=== PATIENT | female | born 1955 | race Caucasian/White ===

== ENCOUNTER 2020-01-17 07:39 | Outpatient (CLI) | payer BC ==
[2020-01-17 19:16] LABS: Bilirubin Neg (Negative); Blood, Urine Negative (Negative); Clarity Clear (Clear); Glucose, Urine (Dipstick) Normal (Negative); Ketone, Urine Negative (Negative); Leukocyte 25 (Negative); Nitrite Negative (Negative); Protein, Urine (Dipstick) Negative (Neg-Trace); Specific Gravity, Urine 1.025 (1.002-1.036); Urobilinogen Normal mg/dL (Less than 2)
[2020-01-17 19:29] LABS: #Basophils 0.1 10x3/uL (0.0-0.2); #Eosinphils 0.2 10x3/uL (0.0-0.5); #Monocytes 0.7 10x3/uL (0.0-1.1); #Neutrophils 4.2 10x3/uL (1.5-8.4); %Basophils 0.7 % (0.0-2.0); %Eosinophils 2.3 % (0.0-6.0); %Lymphocytes 39.8 % (18.0-47.0); %Neutrophils 48.8 % (40.0-75.0); Hemoglobin 16.7 g/dL (12.0-16.0); Mean Corpuscular HGB CONC 33.6 G/DL (32.0-36.0); Mean Corpuscular Hemoglobin 32.3 PG (27.0-33.0); Mean Corpuscular Volume 96.1 fl (80.0-100.0); Mean Platelet Volume 11.9 fl (7.4-10.4); Platelet Count 241 10x3/uL (130-400); RBC Distribution Width 13.2 % (11.5-14.5); Red Blood Cell (RBC) Count 5.17 10x6/uL (3.90-5.20); White Blood Cell (WBC) Count 8.5 10x3/uL (4.5-11.0)
[2020-01-17 19:36] LABS: Prothrombin Time 10.3 sec (9.5-12.1)
[2020-01-17 19:39] LABS: Bacteria/HPF 3+ HPF (None Seen); Mucous/LPF 3+ LPF (<2+); RBC/HPF 0-3 HPF (0-3)
[2020-01-17 19:41] LABS: Anion Gap 17 mmol/L (10-20); BUN (Urea Nitrogen) 28 mg/dL (9.8-20.1); Calc. Creatinine Clearance 0 mL/min (70-130); Calcium 9.9 mg/dL (7.8-10.44); Carbon Dioxide 23 mmol/L (23-31); Chloride 103 mmol/L (98-107); Glucose 79 mg/dL (80-115); Potassium 4.8 mmol/L (3.5-5.1); Sodium 138 mmol/L (136-145)
[2020-01-18 03:28] LABS: SARS-CoV-2 MS2 Positive; SARS-CoV-2 N Gene Negative; SARS-CoV-2 S Gene Negative; SARS-CoV-2 by NAA Not Detected (NotDetected); SARS-CoV-2 orf1ab Negative
--- NOTE | 2020-01-20 16:20 | EKG ---
Test Reason : Blood Pressure : / mmHG Vent. Rate : 071 BPM Atrial Rate : 071 BPM P-R Int : 134 ms QRS Dur : 076 ms QT Int : 360 ms P-R-T Axes : 079 067 058 degrees QTc Int : 391 ms Normal sinus rhythm Normal ECG No previous ECGs available Confirmed by DR. Batool MALIK ([id number]) on 01/20/2020 4:20:04 PM Referred By: Jamal LORENZ, Confirmed By:DR. Batool MALIK
== END 2020-01-17 07:40 | disposition home or self-care (01) ==
LOC: LABBT 07:39
PROVIDERS: ATTEND Orthopaedic Surgery
DX: Z01.818 Encounter for other preprocedural examination (principal); Z20.828 Contact with and (suspected) exposure to other viral communicable diseases; M16.11 Unilateral primary osteoarthritis, right hip
CPT/HCPCS: 80048; 81001; 85025; 85610; 87081; 87635; 93005; 93010; U0003

== ENCOUNTER 2020-01-17 17:00 | Inpatient (IN) | payer BC ==
[2020-01-20 12:35] VITALS: BMI 43.4
[2020-01-21] MEDS ORDERED: Sodium Chloride 0.9% 100 ML ONE (08:58)
[2020-01-21] MEDS ORDERED: Vancomycin 1.5 GRAM/300 ML BAG ONE (08:58)
[2020-01-21] MEDS ORDERED: Tranexamic Acid 1,000 MG/10 ML VIAL ONE (08:58)
[2020-01-21] MEDS ORDERED: Midazolam HCl 2 mg/2 ml Vial ONE (10:10)
[2020-01-21] MEDS ORDERED: Fentanyl 100 MCG/2 ML VIAL ONE ×6 (10:11→16:42)
[2020-01-21] MEDS ORDERED: Ondansetron PF 4 MG/2 ML Vial IVP PRN ×2 (10:56→11:00)
[2020-01-21] MEDS ORDERED: HYDROcodone/Acetaminophen 10/325 mg Tablet PO PRN ×2 (10:56)
[2020-01-21] MEDS ORDERED: diphenhydrAMINE 25 MG CAP PO PRN ×2 (10:56→11:00)
[2020-01-21] MEDS ORDERED: Zolpidem Tartrate 5 MG TAB PO PRN ×2 (10:56→11:00)
[2020-01-21] MEDS ORDERED: Acetaminophen 325 MG TAB PO PRN (10:56)
[2020-01-21] MEDS ORDERED: Promethazine HCl 25 MG/ML VIAL IM PRN ×2 (10:56→11:00)
[2020-01-21] MEDS ORDERED: Naloxone HCl 0.4 mg/ml Vial IV PRN (11:00)
[2020-01-21] MEDS ORDERED: diphenhydrAMINE 50 MG/ML VIAL IVP PRN (11:00)
[2020-01-21] MEDS ORDERED: diphenhydrAMINE 50 MG/ML VIAL IM PRN (11:00)
[2020-01-21] MEDS ORDERED: Naloxone HCl 0.4 mg/ml Vial IVP PRN (11:00)
[2020-01-21] MEDS ORDERED: HYDROcodone/Acetaminophen 5/325 mg Tablet PO PRN ×2 (11:00)
[2020-01-21] MEDS ORDERED: traMADol HCl 50 MG TAB PO PRN (11:00)
[2020-01-21] MEDS ORDERED: Promethazine HCl 25 MG SUPP PR PRN (11:00)
[2020-01-21] MEDS ORDERED: Hydrocerin (Eucerin) Cream 120 gm Jar TOP PRN (11:00)
[2020-01-21] MEDS ORDERED: Bupivacaine 0.25% 10 ML VIAL EPIDURAL PRN (11:00)
[2020-01-21] MEDS ORDERED: Glycopyrrolate 0.2 MG/ML 5 ML SYRINGE ONE (11:10)
[2020-01-21] MEDS ORDERED: PROPOFOL 200 MG/20 ML VIAL ONE (11:10)
[2020-01-21] MEDS ORDERED: Ondansetron PF 4 MG/2 ML Vial ONE (11:10)
[2020-01-21] MEDS ORDERED: Ketorolac Tromethamine 30 MG/ML VIAL ONE (11:10)
[2020-01-21] MEDS ORDERED: ePHEDrine 50 MG/ML VIAL ONE (11:10)
[2020-01-21] MEDS ORDERED: Dexamethasone 20 MG/5 ML VIAL ONE (11:10)
[2020-01-21] MEDS ORDERED: Labetalol HCl 100 MG/20 ML VIAL ONE (11:10)
[2020-01-21] MEDS ORDERED: Lidocaine 1.5% w/Epi 1:200K 30 ML VIAL (Epid Use) ONE (11:10)
[2020-01-21] MEDS ORDERED: Rocuronium Bromide 10 MG/ML (10ML VIAL) ONE (11:10)
[2020-01-21] MEDS ORDERED: Ropivacaine 0.2% HCl/PF 20 ML ONE (11:15)
[2020-01-21] MEDS ORDERED: HYDROmorphone 2 MG/ML VIAL ONE (13:08)
[2020-01-21] MEDS ORDERED: HYDROmorphone 2 MG/ML VIAL SLOW IVP PRN (13:45)
--- NOTE | 2020-01-21 14:27 | OP ---
DATE OF PROCEDURE: 01/21/2020 TITLE OF PROCEDURE: Right total hip arthroplasty using a Demario Accolade II size 3 stem with a 36-mm -5 head, and a Trident II cup size 48 with a standard 36 liner X3 polyethylene. SALES LEAD: Warner Kincaid PA-C BLOOD LOSS: 250. SPECIMEN: None. DRAINS: None. COMPLICATIONS: None. The assistant teaching professor/co-surgeon was present through the entire procedure and was responsible for providing exposure, tissue retraction and any necessary limb or tissue manipulation required to obtain necessary reduction or hardware placement. The assistant teaching professor/co-surgeon also provided bleeding control, tissue closure, and suturing in conjunction with the primary surgeon. PROCEDURE IN DETAIL: After informed consent was obtained in the preoperative holding area, the patient was taken to the operative suite where general anesthesia was induced. The patient was then positioned in the lateral decubitus position. The hip was then prepped and draped in usual sterile fashion. The patient received preoperative antibiotics. Prior to incision, time-out was called and all members of the surgical team agreed upon site, surgeon, and patient. After this, a longitudinal incision was made directly over the trochanter, noted by palpation extending 2 fingerbreadths above and below the trochanter. The deeper subcutaneous layer was undermined with Bovie electrocautery. The iliotibial band was encountered and incised sharply and the plane below this was developed bluntly. A Charnley retractor was placed to hold this opened. The lateral aspect of the trochanter and the abductor muscles were encountered and then reflected anteriorly off the trochanter using Bovie electrocautery. Once this was completed, the anterior capsule was then encountered and identified and copious capsulotomy was carried out, exposing the femoral neck and head. Dislocation maneuver was then performed and an in situ provisional neck cut was then made using the oscillating saw. Attention was then turned to acetabular preparation and sequential reaming was carried out up to the appropriate diameter. A trial was then malleted into place with good firm resistance and no pullout. The permanent acetabular shell was then malleted squarely into place, as was the appropriate liner. Once completed, the wound was copiously irrigated and attention was then turned to femoral preparation. Flexion and external rotation were performed of the exposed thigh and femoral elevators were then placed at the proximal aspect of the wound. Canal finder was used to establish the length of the canal and sequential reaming was carried out, followed by broaching. Once the appropriate stability was established with the trial broaches with flexion, extension and rotational stability, we did trial with neutral and 2 mm offset incremental necks. Once the appropriate size was decided upon, with good stability noted with flexion, extension, internal and external rotation and shuck being negative, we removed the femoral trial broach and malleted into place the permanent prosthesis with good firm fit, which was also stable to rotation. Again, the hip felt very stable to flexion, extension, internal and external rotation. Leg lengths appeared near anatomic clinically and we were quite happy with prosthesis placement. Copious irrigation was then carried out through the entirety of the wound. Primary closure of the abductors was accomplished with interrupted #2 Vicryl [id number] stitches and the IT band was then closed with interrupted #2 Vicryl, oversewn with a #2 running barbed Quill stitch. Subcutaneous fascia was closed with running barbed Quill stitch and a subcuticular Monocryl barbed Quill stitch was used for skin closure and augmented with skin cement. A sterile dressing was applied. The procedure was terminated without any complication. All counts were correct. The patient was awakened in the operative suite and taken to the recovery room in stable condition. Job ID: [id number]
--- NOTE | 2020-01-21 14:44 | RAD ---
Right hip 3 views: 01/21/2020 COMPARISON: None HISTORY: Evaluate right hip following arthroplasty FINDINGS: There is a total hip arthroplasty on the right. There is postoperative gas laterally and an teriorly, evidence of recent hip arthroplasty. No evidence for hardware failure. No displaced fracture or dislocation. IMPRESSION: Radiographic evidence of recent right hip arthroplasty.
[2020-01-21] MEDS ORDERED: HYDROmorphone 0.5 MG/0.5 ML SYRINGE ONE (16:41)
[2020-01-21] MEDS ORDERED: CEFAZOLIN 2 GM in Premix Bag 1 BAG IVPB SCH (17:00)
[2020-01-21] MEDS: Ketorolac Tromethamine 30 MG/ML VIAL IVP SCH (19:57)
[2020-01-21] MEDS: Mometasone 200 MCG/Formoterol 5 MCG 120 PUFF INHALER INH SCH (20:26)
[2020-01-21] MEDS: Ferrous Gluconate 324 MG TAB PO SCH (20:38)
[2020-01-21] MEDS: Aspirin 81 mg Enteric Coated Tablet PO SCH (20:44)
[2020-01-21] MEDS: Acetaminophen 500 MG TAB PO SCH (20:44)
[2020-01-21] MEDS: traMADol HCl 50 MG TAB PO PRN (20:56)
[2020-01-21] MEDS: Senokot S 8.6-50 MG TAB PO SCH (21:13)
[2020-01-21] MEDS: Sodium Chloride 0.9% 1,000 ML IV SCH ×2 (21:13)
[2020-01-22] MEDS: Ketorolac Tromethamine 30 MG/ML VIAL IVP SCH ×5 (00:29→23:39)
[2020-01-22] MEDS: fentaNYL Citrate/PF 500 MCG, Bupivacaine 10 ML in Sodium Chloride 0.9% 80 ML EPIDURAL SCH ×2 (00:33→16:58)
[2020-01-22] MEDS ORDERED: CEFAZOLIN 2 GM in Premix Bag 1 BAG IVPB SCH (05:00)
[2020-01-22 06:18] LABS: Hemoglobin 13.7 g/dL (12.0-16.0); Mean Corpuscular HGB CONC 32.4 g/dL (32.0-36.0); Mean Corpuscular Hemoglobin 32.3 pg (27.0-31.0); Mean Corpuscular Volume 99.5 fL (78.0-98.0); Mean Platelet Volume 9.5 fL (7.4-10.4); Platelet Count 184 thou/uL (130-400); RBC Distribution Width 12.3 % (11.5-14.5); Red Blood Cell (RBC) Count 4.23 mill/uL (4.20-5.40); White Blood Cell (WBC) Count 14.4 thou/uL (4.8-10.8)
[2020-01-22] MEDS: Sodium Chloride 0.9% 1,000 ML IV SCH ×2 (07:21→17:49)
[2020-01-22] MEDS: Mometasone 200 MCG/Formoterol 5 MCG 120 PUFF INHALER INH SCH ×2 (07:29→18:10)
[2020-01-22] MEDS ORDERED: FLU VACC QS2020-21(6MOS UP)/PF 60 MCG/0.5 ML SYRINGE IM ONE (09:00)
[2020-01-22] MEDS: Hydrochlorothiazide 25 MG TAB PO SCH (09:39)
[2020-01-22] MEDS: Amlodipine 5 MG TAB PO SCH (09:39)
[2020-01-22] MEDS: traMADol HCl 50 MG TAB PO PRN (09:44)
[2020-01-22] MEDS: Senokot S 8.6-50 MG TAB PO SCH ×2 (09:45→20:38)
[2020-01-22] MEDS: Aspirin 81 mg Enteric Coated Tablet PO SCH ×2 (09:45→20:38)
[2020-01-22] MEDS: Acetaminophen 500 MG TAB PO SCH ×2 (09:45→20:37)
[2020-01-22] MEDS: Multivitamin W/ Minerals 1 TAB PO SCH (09:45)
[2020-01-22] MEDS: Ferrous Gluconate 324 MG TAB PO SCH ×2 (09:46→20:38)
[2020-01-22] MEDS ORDERED: oxyCODONE 5 MG TAB PO PRN (10:09)
--- NOTE | 2020-01-22 11:20 | PRG ---
DATE OF SERVICE: 01/22/2020 SUBJECTIVE: Prisca is a 64-year-old female postop day 1 from a right total hip arthroplasty. She is doing relatively well. She has very good spirits and she is very comfortable and has no complaints. She ambulated 200 feet today. OBJECTIVE: VITAL SIGNS: Temperature 98.5, pulse 66, respiratory rate 16 and unlabored, and blood pressure 106/73. NEUROLOGIC: She is alert and oriented to person, place, time, and situation. Responsive and appropriate with the examiner. Visual inspection of the right hip demonstrates no strike through. No erythema. No malrotation or shortening. She is neurovascularly intact in the right lower extremity. LABORATORY DATA: Hemoglobin and hematocrit of 13.7 and 42.1. IMPRESSION: This is a 64-year-old female, postop day 1 right total hip arthroplasty, doing very well. PLAN: Continue current care. Expected discharge tomorrow. Job ID: [id number]
[2020-01-22] MEDS: Calcium Carbonate 500 MG ChewTAB PO PRN ×2 (13:12→20:45)
[2020-01-22] MEDS: oxyCODONE 5 MG TAB PO PRN (20:39)
[2020-01-23] MEDS: Sodium Chloride 0.9% 1,000 ML IV SCH ×2 (03:12→13:16)
[2020-01-23] MEDS: Ketorolac Tromethamine 30 MG/ML VIAL IVP SCH (05:53)
[2020-01-23] MEDS: Mometasone 200 MCG/Formoterol 5 MCG 120 PUFF INHALER INH SCH (06:46)
[2020-01-23] MEDS: Acetaminophen 500 MG TAB PO SCH (08:44)
[2020-01-23] MEDS: Ferrous Gluconate 324 MG TAB PO SCH (08:45)
[2020-01-23] MEDS: Amlodipine 5 MG TAB PO SCH (08:45)
[2020-01-23] MEDS: Aspirin 81 mg Enteric Coated Tablet PO SCH (08:45)
[2020-01-23] MEDS: Multivitamin W/ Minerals 1 TAB PO SCH (08:45)
[2020-01-23] MEDS: Senokot S 8.6-50 MG TAB PO SCH (08:45)
[2020-01-23] MEDS: Hydrochlorothiazide 25 MG TAB PO SCH (08:46)
[2020-01-23] MEDS: oxyCODONE 5 MG TAB PO PRN (10:29)
[2020-01-23 11:54] VITALS: BP 137/84; TEMP 98.2
== END 2020-01-23 14:15 | disposition home or self-care (01) | DRG 470 ==
LOC: SURG A 01-21 07:55 → EDSTATUS 01-21 17:00 → SURG A 01-21 19:52
PROVIDERS: ADMIT Orthopaedic Surgery; ATTEND Orthopaedic Surgery
PROC: 0SR90J9 Replacement of Right Hip Joint with Synthetic Substitute, Cemented, Open Approach (ICD-10-PCS; principal; 2020-01-21)
DX: M16.11 Unilateral primary osteoarthritis, right hip (principal); Z68.41 Body mass index [BMI] 40.0-44.9, adult; Z20.828 Contact with and (suspected) exposure to other viral communicable diseases; I10 Essential (primary) hypertension; F17.210 Nicotine dependence, cigarettes, uncomplicated; M70.61 Trochanteric bursitis, right hip; G47.33 Obstructive sleep apnea (adult) (pediatric); E66.9 Obesity, unspecified; F41.9 Anxiety disorder, unspecified; J40 Bronchitis, not specified as acute or chronic; Z79.899 Other long term (current) drug therapy; Z79.51 Long term (current) use of inhaled steroids
CPT/HCPCS: 36415; 85027; 90471; 90662; 94640; 94664; G0008; J0690; J1100; J1170; J1885; J2001; J2250; J2405; J2704; J2795; J3010; J3370; J3490; J7620

== ENCOUNTER 2020-05-13 13:29 | Outpatient (CLI) | payer BC ==
[2020-05-13 14:59] LABS: #Basophils 0.1 10x3/uL (0.0-0.2); #Eosinphils 0.2 10x3/uL (0.0-0.5); #Monocytes 0.6 10x3/uL (0.0-1.1); #Neutrophils 4.9 10x3/uL (1.5-8.4); %Basophils 0.7 % (0.0-2.0); %Eosinophils 2.1 % (0.0-6.0); %Lymphocytes 34.2 % (18.0-47.0); %Monocytes 7.2 % (0.0-10.0); %Neutrophils 55.6 % (40.0-75.0); Hemoglobin 16.3 g/dL (12.0-15.5); Mean Corpuscular HGB CONC 33.5 g/dL (32.0-36.0); Mean Corpuscular Hemoglobin 31.6 pg (27.0-33.0); Mean Corpuscular Volume 94.4 fl (81.6-98.3); Mean Platelet Volume 11.5 fl (7.4-10.4); Platelet Count 253 10x3/uL (150-450); RBC Distribution Width 13.3 % (11.5-14.5); Red Blood Cell (RBC) Count 5.16 10x6/uL (3.90-5.03); White Blood Cell (WBC) Count 8.9 10x3/uL (3.5-10.5)
[2020-05-13 15:12] LABS: Anion Gap 15 mmol/L (10-20); BUN (Urea Nitrogen) 17 mg/dL (9.8-20.1); Calc. Creatinine Clearance 0 mL/min (70-130); Calcium 9.8 mg/dL (7.8-10.44); Carbon Dioxide 29 mmol/L (23-31); Chloride 102 mmol/L (98-107); Glucose 101 mg/dL (80-115); Potassium 4.6 mmol/L (3.5-5.1); Sodium 141 mmol/L (136-145)
[2020-05-13 15:32] LABS: Prothrombin Time 10.7 sec (9.5-12.1)
[2020-05-14 02:32] LABS: SARS-CoV-2 PCR by NAA Not Detected (NotDetected)
== END 2020-05-13 13:30 | disposition home or self-care (01) ==
LOC: LABBT 13:29
PROVIDERS: ATTEND Orthopaedic Surgery
DX: Z01.812 Encounter for preprocedural laboratory examination (principal); M16.11 Unilateral primary osteoarthritis, right hip; Z20.822 Contact with and (suspected) exposure to COVID-19
CPT/HCPCS: 80048; 85025; 85610; 87081; 87635; U0003; U0005

== ENCOUNTER 2020-05-13 13:30 | Inpatient (IN) | payer BC ==
[2020-05-14 10:56] VITALS: BMI 43.4
[2020-05-18] MEDS ORDERED: Fentanyl 100 MCG/2 ML VIAL ONE ×8 (06:09→11:54)
[2020-05-18] MEDS ORDERED: Midazolam HCl 2 mg/2 ml Vial ONE (06:14)
[2020-05-18] MEDS ORDERED: Promethazine HCl 25 MG/ML VIAL IM PRN ×3 (06:42→07:30)
[2020-05-18] MEDS ORDERED: Ondansetron HCl/PF 4 MG/2 ML Vial IVP PRN (06:42)
[2020-05-18] MEDS ORDERED: Promethazine HCl 25 MG/ML VIAL SLOW IVP PRN (06:42)
[2020-05-18] MEDS ORDERED: HYDROmorphone 2 MG/ML VIAL SLOW IVP PRN (06:42)
[2020-05-18] MEDS ORDERED: Tranexamic Acid 1,000 MG/10 ML VIAL ONE (06:50)
[2020-05-18] MEDS ORDERED: Sodium Chloride 0.9% 100 ML ONE (06:50)
[2020-05-18] MEDS ORDERED: Vancomycin 1.5 GRAM/300 ML BAG ONE (06:50)
[2020-05-18] MEDS ORDERED: traMADol HCl 50 MG TAB PO PRN ×3 (06:55→07:30)
[2020-05-18] MEDS ORDERED: diphenhydrAMINE 25 MG CAP PO PRN ×2 (06:55→07:30)
[2020-05-18] MEDS ORDERED: Acetaminophen 325 MG TAB PO PRN (06:55)
[2020-05-18] MEDS ORDERED: Ondansetron PF 4 MG/2 ML Vial IVP PRN ×2 (06:55→07:30)
[2020-05-18] MEDS ORDERED: Zolpidem Tartrate 5 MG TAB PO PRN ×2 (06:55→07:30)
[2020-05-18] MEDS ORDERED: Dexamethasone 20 MG/5 ML VIAL ONE (07:20)
[2020-05-18] MEDS ORDERED: Lidocaine 1% PF 5 ML VIAL ONE (07:20)
[2020-05-18] MEDS ORDERED: Rocuronium Bromide 10 MG/ML (10ML VIAL) ONE (07:20)
[2020-05-18] MEDS ORDERED: Lidocaine 1.5% w/Epi 1:200K 30 ML VIAL (Epid Use) ONE (07:20)
[2020-05-18] MEDS ORDERED: PROPOFOL 200 MG/20 ML VIAL ONE (07:20)
[2020-05-18] MEDS ORDERED: Ondansetron PF 4 MG/2 ML Vial ONE (07:20)
[2020-05-18] MEDS ORDERED: Acetaminophen 500 MG TAB PO PRN (07:29)
[2020-05-18] MEDS ORDERED: diphenhydrAMINE 50 MG/ML VIAL IM PRN (07:30)
[2020-05-18] MEDS ORDERED: Hydrocerin (Eucerin) Cream 120 gm Jar TOP PRN (07:30)
[2020-05-18] MEDS ORDERED: Promethazine HCl 25 MG SUPP PR PRN (07:30)
[2020-05-18] MEDS ORDERED: Naloxone HCl 0.4 mg/ml Vial IV PRN (07:30)
[2020-05-18] MEDS ORDERED: Bupivacaine 0.25% 10 ML VIAL EPIDURAL PRN (07:30)
[2020-05-18] MEDS ORDERED: diphenhydrAMINE 50 MG/ML VIAL IVP PRN (07:30)
[2020-05-18] MEDS ORDERED: Naloxone HCl 0.4 mg/ml Vial IVP PRN (07:30)
[2020-05-18] MEDS ORDERED: Ropivacaine 0.5% HCl/PF (150 MG/30 ML VIAL) ONE (07:35)
[2020-05-18] MEDS ORDERED: SUGAMMADEX SODIUM 200 MG/2 ML VIAL ONE (08:24)
[2020-05-18] MEDS ORDERED: Ketorolac Tromethamine 30 MG/ML VIAL ONE (09:41)
[2020-05-18] MEDS ORDERED: Promethazine HCl 25 MG/ML VIAL ONE (09:48)
[2020-05-18] MEDS ORDERED: HYDROmorphone 0.5 MG/0.5 ML SYRINGE ONE (11:03)
[2020-05-18] MEDS ORDERED: Bupivacaine 0.25% HCL 30 ML VIAL ONE (11:58)
[2020-05-18] MEDS ORDERED: ePHEDrine 50 MG/ML VIAL ONE (12:27)
[2020-05-18] MEDS ORDERED: Phenylephrine 10 MG/ML VIAL ONE (12:28)
[2020-05-18] MEDS ORDERED: PHENYLEPHRINE-NS 100 MCG/ML 10 ML SYRINGE ONE (12:28)
[2020-05-18] MEDS ORDERED: Ketorolac Tromethamine 30 MG/ML VIAL IVP SCH (14:00)
[2020-05-18] MEDS ORDERED: Ketorolac Tromethamine 30 MG/ML VIAL IM SCH (14:00)
[2020-05-18] MEDS ORDERED: CEFAZOLIN 2 GM in Premix Bag 1 BAG IVPB SCH (14:00)
[2020-05-18] MEDS: Aspirin 81 mg Enteric Coated Tablet PO SCH ×2 (16:30→20:48)
[2020-05-18] MEDS: Ketorolac Tromethamine 30 MG/ML VIAL IVP SCH ×3 (16:30→23:54)
[2020-05-18] MEDS: Sodium Chloride 0.9% 1,000 ML IV SCH ×2 (16:30→17:48)
[2020-05-18] MEDS: CEFAZOLIN 2 GM in Premix Bag 1 BAG IVPB SCH (17:48)
[2020-05-19] MEDS: CEFAZOLIN 2 GM in Premix Bag 1 BAG IVPB SCH (01:57)
[2020-05-19] MEDS: Sodium Chloride 0.9% 1,000 ML IV SCH ×3 (05:17→23:01)
[2020-05-19 05:47] LABS: Hemoglobin 12.8 g/dL (12.0-16.0); Mean Corpuscular HGB CONC 32.5 g/dL (32.0-36.0); Mean Corpuscular Hemoglobin 32.1 pg (27.0-31.0); Mean Platelet Volume 9.2 fL (7.4-10.4); Platelet Count 194 thou/uL (130-400); RBC Distribution Width 12.4 % (11.5-14.5); White Blood Cell (WBC) Count 15.1 thou/uL (4.8-10.8)
[2020-05-19] MEDS: Ketorolac Tromethamine 30 MG/ML VIAL IVP SCH ×4 (06:01→23:57)
[2020-05-19] MEDS: Fentanyl 5 mcg/Bup 0.075% Cadd 100 ML EPIDURAL SCH ×2 (07:03→23:58)
[2020-05-19] MEDS: Aspirin 81 mg Enteric Coated Tablet PO SCH ×2 (08:42→21:04)
[2020-05-19] MEDS: Ferrous Gluconate 324 MG TAB PO SCH ×2 (08:42→21:04)
[2020-05-19] MEDS: Multivitamin W/ Minerals 1 TAB PO SCH (08:43)
[2020-05-19] MEDS: Senokot S 8.6-50 MG TAB PO SCH ×2 (08:43→21:04)
[2020-05-19] MEDS: oxyCODONE/Acetaminophen 5 mg/325 mg Tablet PO PRN (08:43)
[2020-05-19] MEDS ORDERED: Prevnar 13-Val Conj/PF 0.5 ML SYRINGE IM ONE (09:00)
[2020-05-20] MEDS: Ketorolac Tromethamine 30 MG/ML VIAL IVP SCH (05:44)
[2020-05-20 08:24] VITALS: TEMP 98.3
[2020-05-20] MEDS: Aspirin 81 mg Enteric Coated Tablet PO SCH (08:50)
[2020-05-20] MEDS: Senokot S 8.6-50 MG TAB PO SCH (08:50)
[2020-05-20] MEDS: Ferrous Gluconate 324 MG TAB PO SCH (08:50)
[2020-05-20] MEDS: Multivitamin W/ Minerals 1 TAB PO SCH (08:51)
[2020-05-20] MEDS: Sodium Chloride 0.9% 1,000 ML IV SCH (09:08)
[2020-05-20 11:21] VITALS: BP 112/65
[2020-05-20] MEDS ORDERED: Ondansetron ODT 4 MG TAB PO SCH (11:30)
[2020-05-20] MEDS: oxyCODONE/Acetaminophen 5 mg/325 mg Tablet PO PRN (11:46)
== END 2020-05-20 13:28 | disposition home or self-care (01) | DRG 470 ==
LOC: SJJU 05-18 05:19
PROVIDERS: ADMIT Orthopaedic Surgery; ATTEND Orthopaedic Surgery
PROC: 0SRB049 Replacement of Left Hip Joint with Ceramic on Polyethylene Synthetic Substitute, Cemented, Open Approach (ICD-10-PCS; principal; 2020-05-18)
DX: M16.12 Unilateral primary osteoarthritis, left hip (principal); Z20.822 Contact with and (suspected) exposure to COVID-19; I10 Essential (primary) hypertension; D72.829 Elevated white blood cell count, unspecified; Z90.710 Acquired absence of both cervix and uterus; Z90.49 Acquired absence of other specified parts of digestive tract; Z79.899 Other long term (current) drug therapy; Z28.21 Immunization not carried out because of patient refusal
CPT/HCPCS: 36415; 85027; J0690; J1100; J1170; J1885; J2001; J2250; J2370; J2405; J2550; J2704; J2795; J3010; J3370; J3490; Q0162; S0020

== ENCOUNTER 2023-08-22 13:07 | Outpatient (CLI) | payer MEDICARE, BC | END 2023-08-22 13:08 | disposition home or self-care (01) | LOC: BICCT 13:07 | PROVIDERS: ATTEND Otolaryngology Plastic Surgery within the Head & Neck | DX: E27.8 Other specified disorders of adrenal gland (principal); D35.02 Benign neoplasm of left adrenal gland; D35.01 Benign neoplasm of right adrenal gland; D18.03 Hemangioma of intra-abdominal structures; N28.89 Other specified disorders of kidney and ureter | CPT/HCPCS: 74170; 82565 ==